=== PATIENT | male | born 1950 | race Caucasian/White ===

== ENCOUNTER 2019-05-21 06:34 | Day surgery (SDC) | payer OTHER, MEDICARE ==
[~2019-05-21] VITALS: Ht 182.9 cm; Wt 70.5 kg
[2019-05-21 06:57] LABS: HEMATOCRIT 42.6 % (42.0-54.0); HEMOGLOBIN 15.1 g/dL (13.5-17.5); MCH 30.6 pg (26.0-34.0); MCHC 35.4 g/dL (31.0-37.0); MCV 86.4 fL (80.0-100.0); MEAN PLATELET VOLUME 9.5 fL (7.4-10.4); PLATELET COUNT 183 10x3/uL (130-400); RBC 4.93 10x6/uL (4.20-6.10); RDW 12.4 % (11.5-14.5); WBC 4.5 10x3/uL (4.8-10.8)
[2019-05-21 07:06] LABS: ANION GAP 8.7 mmol/L (8-16); CALCIUM 8.8 mg/dL (8.5-10.1); CARBON DIOXIDE 29.6 mmol/L (21.0-32.0); CREATININE - SERUM 1.2 mg/dL (0.6-1.3); POTASSIUM - SERUM 4.3 mmol/L (3.5-5.1)
[2019-05-21] MEDS ORDERED: LISINOPRIL2.5 MG PO (07:13)
[2019-05-21 07:19] VITALS: BP 142/81; Ht 182.9 cm; Wt 70.5 kg
[2019-05-21 08:41] LABS: BASOPHILS 1 % (0-2); EOSINOPHILS 2 % (0-7); LYMPHOCYTES 29 % (15-50); MONOCYTES 2 % (2-11); NEUTROPHILS 61 % (40-80); PLATELET ESTIMATE DECREASED
--- NOTE | 2019-05-21 08:46 | OP ---
PATIENT NAME: ULISES SHIRLEY MEDICAL RECORD: [id number] :54 LOCATION:[facility] ADMISSION DATE: SURGEON: YENIFER CELESTE MD DATE OF OPERATION: 05/21/2019 PREOPERATIVE DIAGNOSIS: Gastric mass. POSTOPERATIVE DIAGNOSES: Gastric mass, large paraesophageal hernia, duodenitis. SURGEON: Yeinfer Celeste MD (JJ) PROCEDURE: Esophagogastroduodenoscopy with biopsy and Jennifer ink staining. SPECIMENS: 1. Duodenum. 2. Gastric mass. 3. Gastroesophageal junction. ANESTHESIA: Total intravenous anesthesia. Case was contaminated. OPERATIVE COURSE: After consent was obtained, the patient was taken to the endoscopy suite. A timeout was taken to confirm the correct patient and procedure. Hurricaine Covina was administered. Bite block was placed. Total intravenous anesthesia was administered. The patient was placed in left lateral decubitus position. Gastroscope was inserted through the bite block into the posterior oropharynx under direct endoscopic vision, it was advanced posterior to the epiglottis, into the esophagus. At this time, it was then passed into the stomach without difficulty. The stomach was insufflated. The gastric mass seen on CT scan was seen in the antrum covering the opening of the pylorus. The scope was advanced beyond the well rounded gastric mass. The pylorus was intubated. The first and second portion of the duodenums were evaluated. There was severe duodenitis noted in the first portion of the duodenum. Multiple biopsies were taken. The scope was retracted to the stomach. The gastric mass was evaluated. Multiple biopsies were taken at the well rounded circumcised mass in the distal antrum. The base of the lesion was stained with Jennifer ink. The scope was retroflexed. There was a large paraesophageal hernia noted. The scope was withdrawn to the GE junction. There was erosive esophagitis noted in the GE junction. Multiple biopsies were taken of the GE junction. The scope was reinserted into the stomach. The stomach was desufflated. The scope was then slowly withdrawn to the esophagus. There were no abnormalities of the esophagus other than the area of the GE junction. At this time, the scope was removed. The procedure was terminated. The patient tolerated the procedure well. Postoperatively, was transferred to the recovery room in stable condition. TRANSINT:[id number] Voice Confirmation ID: [id number] DOCUMENT ID: [id number] OPERATIVE REPORT [id number] ULISES SHIRLEY,YENIFER Montiel MD at 0846 CC: [id number] DICTATION DATE: 05/21/19822 BAIL BONDSMAN: 05/21/19 0842 REG [facility] [address] [id number]
--- NOTE | 2019-05-21 09:16 | NUR ---
DC INSTRUCTIONS GIVEN TO PT/FAMILY. STATE UNDERSTANDING. DC'D IV CATH FULLY INTACT. PT LEFT UNIT VIA WC AT 0911
== END 2019-05-21 09:11 | disposition home or self-care (01) ==
LOC: D.SP 06:34
PROVIDERS: Anesthesiology; ATTEND Surgery
DX: K29.50 Unspecified chronic gastritis without bleeding (principal); K44.9 Diaphragmatic hernia without obstruction or gangrene; K29.80 Duodenitis without bleeding; Z01.812 Encounter for preprocedural laboratory examination

== ENCOUNTER 2019-06-06 16:18 | Inpatient (IN) | payer OTHER, MEDICARE ==
[~2019-06-06] VITALS: Ht 182.9 cm; Wt 70.5 kg
[~2019-06-06 16:18] MED LIST: LISINOPRIL2.5 MG PO
[2019-06-12] MEDS ORDERED: CENTRUM MEN'S1 EACH PO (09:08)
[2019-06-12 09:48] LABS: BASOPHILS 0.8 % (0-2); EOSINOPHILS 1.8 % (0-7); HEMOGLOBIN 15.9 g/dL (13.5-17.5); IMMATURE GRANULOCYTES 0.3 % (0-5); LYMPHOCYTES 23.6 % (15-50); MCH 30.2 pg (26.0-34.0); MCHC 34.6 g/dL (31.0-37.0); MCV 87.3 fL (80.0-100.0); MEAN PLATELET VOLUME 9.8 fL (7.4-10.4); MONOCYTES 8.9 % (2-11); NEUTROPHILS 64.6 % (40-80); PLATELET COUNT 173 10x3/uL (130-400); RBC 5.27 10x6/uL (4.20-6.10); RDW 12.8 % (11.5-14.5); WBC 6.2 10x3/uL (4.8-10.8)
[2019-06-12 10:08] LABS: APTT 28.8 SECONDS (22.8-39.4); INR 0.99 (0.85-1.17); PROTIME 12.6 SECONDS (11.6-15.0)
[2019-06-13] VITALS (10 sets, daily range): BP systolic 119–142; BP diastolic 72–84; Ht 182.9 cm; Wt 70.5 kg
--- NOTE | 2019-06-13 11:02 | NUR ---
WHILE PLACING ESPINOSA CATHETER WE INCOUNTERED RESISTANCE AND HAD DIFFICULTY PASSING CATHETER PASSED THE PATIENTS PROSTATE. AFTER SEVERAL ATTEMPTS BY ME AND ANOTHOR NURSE WE CALLED DR. CELESTE AND HE WAS ABLE TO PLACE THE CATHETER BY USING A COUDE CATHETER WITH A CATHETER GUIDE. PATIENT HAS SOME BLEEDING AROUND THE CATHETER AND HAD BLOOD TENGED URINE FOLLOWING THESE ATTEMPTS.
--- NOTE | 2019-06-13 14:18 | NUR ---
RESTING IN BED. FAMILY AT BEDSIDE. DENIES PAIN. DENIES NEEDS. WILL CONTINUE TO MONITOR.
--- NOTE | 2019-06-13 15:17 | NUR ---
STATES PAIN 2/10. REQUESTED AND GIVEN PRN TORADOL. DOES NOT WANT ENERGY PROFESSIONAL SET UP AT THIS TIME. STATES DOES NOT FEEL LIKE AMBULATING AT THIS TIME BUT WILL "LATER." WILL CONTINUE TO MONITOR AND ATTEMPT TO AMBULATE AGAIN WHEN PAIN SUBSIDES.
--- NOTE | 2019-06-13 15:24 | NUR ---
SPOKE WITH DR CELESTE WHO STATES KEEP PATIENT NPO EXCEPT FOR ICE CHIPS AND SIPS OF WATER.
--- NOTE | 2019-06-13 15:59 | NUR ---
SPOKE WITH DR CELESTE IN ROOM WITH PATIENT AND FAMILY. STATES ESPINOSA CAN COME OUT TOMORROW MORNING AND TO FLUSH IF STOPS DRAINING. STATES IF SWALLOW STUDY OK, POSSIBLE DISCHARGE TOMORROW.
--- NOTE | 2019-06-13 16:00 | NUR ---
AMBULATED 250 FEET PER NURSING.
--- NOTE | 2019-06-13 16:05 | NUR ---
SMALL AMOUNT OF BLOOD NOTED TO TIP OF PENIS AROUND CATHETER. DR CELESTE AWARE.
--- NOTE | 2019-06-13 16:27 | NUR ---
VITALS REMAIN STABLE. TAKEN OFF O2. O2 95% ON ROOM AIR. WILL CONTINUE TO MONITOR. STATES PAIN AT 0 AFTER PRN TORADOL AND DOES NOT WANT DIGITAL ASSET COORDINATOR AT THIS TIME WILL CONTINUE TO MONITOR.
--- NOTE | 2019-06-13 17:15 | NUR ---
RESTING IN BED. VITALS REMAIN STABLE. DENIES PAIN. DENIES NEEDS. WILL CONTINUE TO MONITOR.
--- NOTE | 2019-06-13 20:00 | NUR ---
ASSESSMENT PER FLOWSHEET. LAP SITES X6 TO ABDOMEN INTACT WITH RT LAP SITE OOZING TINY AMT OF BLOOD. PT IS NPO X ICE CHIPS. SMALL AMOUNT BLOOD COMING FROM PENIS ESPINOSA INSERTION SITE. URINE IN TUBING IS CLEARING UP DARK LATA NOTED. IV PATENT RT ARM OF LR AT 75CC'S/HR. SITE CLEAR. DENIES PAIN. PATIENT REQUESTING TO WALK AT BEDSIDE. GOWN CHANGED TO A CLIMATOLOGIST GOWN IV PLACED ON DELAY. AND PATIENT AMBULATED IN HALLWAY X ONE LAP TOLERATED WELL.
--- NOTE | 2019-06-13 21:00 | NUR ---
PATIENT IN ROOM NOW IN BED. SR UP X2 CALL LIGHT WITHIN REACH. RESTING QUIETLY.
--- NOTE | 2019-06-13 23:58 | NUR ---
C/O INCISIONAL PAIN RATES PAIN LEVEL #5. TORADOL 30MG IVP GIVEN FOR PAIN CONTROL.
[2019-06-14 01:06] VITALS: BP 123/59
--- NOTE | 2019-06-14 01:47 | NUR ---
EYES CLOSED RESPIRATIONS WITH EASE AND UNLABORED. AT BEDSIDE. PT HAS BEEN TAKING ICE CHIPS WITHOUT AND PROBLEMS.
[2019-06-14 05:37] VITALS: BP 112/59
--- NOTE | 2019-06-14 06:27 | NUR ---
MEDS GIVEN PER MAR. RESTING QUIETLY DENIES NEEDS.
[2019-06-14 06:42] LABS: BASOPHILS 0.1 % (0-2); EOSINOPHILS 0 % (0-7); HEMOGLOBIN 12.9 g/dL (13.5-17.5); IMMATURE GRANULOCYTES 0.2 % (0-5); LYMPHOCYTES 4.8 % (15-50); MCH 30.1 pg (26.0-34.0); MCHC 34.9 g/dL (31.0-37.0); MCV 86.2 fL (80.0-100.0); MEAN PLATELET VOLUME 9.9 fL (7.4-10.4); MONOCYTES 6.6 % (2-11); NEUTROPHILS 88.3 % (40-80); RBC 4.29 10x6/uL (4.20-6.10); RDW 13.1 % (11.5-14.5)
[2019-06-14 06:50] LABS: PLATELET COUNT 137 10x3/uL (130-400); WBC 13.9 10x3/uL (4.8-10.8)
[2019-06-14 06:56] LABS: ALBUMIN 2.9 g/dL (3.4-5.0); ANION GAP 11.2 mmol/L (8-16); BILIRUBIN - TOTAL 1.02 mg/dL (0.2-1.3); CARBON DIOXIDE 27.3 mmol/L (21.0-32.0); CREATININE - SERUM 1.2 mg/dL (0.6-1.3); POTASSIUM - SERUM 4.5 mmol/L (3.5-5.1); PROTEIN - SERUM 5.7 g/dL (6.4-8.2)
--- NOTE | 2019-06-14 07:15 | NUR ---
REPORT RECIEVED PATIENT IN BED WITH IV INTACT. NO COMPLAINTS OR SIGNS OF DISTRESS. ESPINOSA INTACT. FAMILY AT BEDSIDE. CALL LIGHT WITHIN REACH.
--- NOTE | 2019-06-14 07:34 | NUR ---
PATIENT CATHETER REMOVED AT THIS TIME PER ORDER. PATIENT VOIDED SMALL AMOUNT AFTER REMOVING. LIGHT PINK URINE. STATED HAS SMALL AMOUNT OF PAIN FROM CATHETER. WILL CONTINUE TO MONITOR.
[2019-06-14 08:50] VITALS: BP 116/53
--- NOTE | 2019-06-14 09:54 | NUR ---
PATIENT TO GET SWALLOW STUDY.
--- NOTE | 2019-06-14 11:00 | NUR ---
PATIENT AMBULATING IN [place] WITH FOR 2ND TIME. NO PROBLEMS AT THIS TIME. ABLE TO AMBULATE WITHOUT ASSISTANCE.
[2019-06-14 12:14] VITALS: BP 120/61
[2019-06-14] MEDS ORDERED: HYDROCODON-ACE1 EAC7 PO (13:35)
--- NOTE | 2019-06-14 15:00 | NUR ---
PATIENT RECIEVED DC INSTRUCTIONS. VERBALIZED UNDERSTANDING. NO QUESTIONS AT THIS TIME. IV REMOVED WITH CATH TIP INTACT. NOTIFIED PATIENT MEDS CALLED INTO [facility].
--- NOTE | 2019-06-14 15:15 | NUR ---
PATIENT AMBULATED OUT OF HOSPITAL WITH FAMILY AND PERSONAL BELONGINGS TO PRIVATE VEHICLE. REFUSED WC AT THIS TIME.
--- NOTE | 2019-06-18 12:28 | MORECARE ---
CASE MANAGEMENT DISCHARGE SUMMARY PATIENT: ULISES SHIRLEY UNIT: [id number] ADM DATE: 06/13/19 AGE: 69 : 52 SEX: M ROOM/BED: D.2224 AUTHOR: GEORGIA SAUCEDA PHYSICIAN: REFERRING PHYSICIAN: YENIFER CELESTE MD DATE OF SERVICE: 06/18/19 Discharge Plan Patient Name: ULISES SHIRLEY Facility: [facility]:[place] : 1950 Planned Disposition: Anticipated Discharge Date: Discharge Date: 06/14/2019 Expected LOS: 0 Initial Reviewer: [email or web address] Initial Review Date: 06/18/2019 Generated: 06/18/19 1:27 pm DCP- Discharge Planning Updated by [email or web address]: Sanaz Chapa on 06/13/19 2:[address] Linda with [employer] called and states that she is the leather case finisher for him and to call for any discharge planning/needs. Her phone number is [phone] ext [phone]. Patient Name: ULISES SHIRLEY Page [id number] at 1228 All edits/amendments must be made on the electronic document DICTATION DATE: 06/18/191226 BONBON CREAM WARMER: АННА 06/18/197 RPT#: [id number] DC DATE:06/14/19 STATUS: DIS IN [facility] [address] [place] [address] END OF REPORT
--- NOTE | 2019-07-11 09:56 | OP ---
PATIENT NAME: ULISES SHIRLEY MEDICAL RECORD: [id number] :54 LOCATION:[id number] ADMISSION DATE:06/13/19 SURGEON: SARAH CURTIS MD DATE OF OPERATION: 06/13/2019 DIE SIZER'S NOTE I assisted Dr. Scooby Godoy with an operation on 06/13/2019. My involvement in the operation included performing intraoperative esophagogastroduodenoscopy with CO2. A bite block was inserted. A gastroscope was inserted into the mouth. It was advanced easily into the hypopharynx. The esophagus was easily intubated as were the stomach and duodenum. Upon withdrawal, I identified the mass. I was able to transilluminate the stomach. The Jennifer ink stain was noted around the mass. The scope light was then turned off. I then scrubbed in. I assisted with laparoscopic resection of the tumor. I did some dissection with the Harmonic scalpel. I did some retraction of the stomach as well as suctioning and irrigating. My involvement in this portion of the operation was really quite minimal. I then scrubbed out. I proceeded with the EGD. I insufflated the stomach with CO2. This was done while there was saline covering the stomach. The suture line was tested. There was no evidence of leak. The endoscope was then withdrawn under direct vision. TRANSINT:[id number] Voice Confirmation ID: [id number] DOCUMENT ID: [id number] SARAH CURTIS MD at 0956 CC: [id number] DICTATION DATE: 07/10/19 182 SPANISH SPEAKING NANNY: 07/11/19 0202 DIS IN 06/14/19 [id number] [place] [id number]
== END 2019-06-14 16:15 | disposition home or self-care (01) | DRG 983 ==
LOC: D.MS 06-13 07:00 → D.SDCHOLD 06-13 08:00 → D.MS 06-14 16:15
PROVIDERS: Anesthesiology; ADMIT Surgery; ATTEND Surgery
PROC: 0BQT4ZZ Repair Diaphragm, Percutaneous Endoscopic Approach (ICD-10-PCS; principal; 2019-06-13 09:00)
PROC: 0DB64ZZ Excision of Stomach, Percutaneous Endoscopic Approach (ICD-10-PCS; 2019-06-13 09:00)
DX: C49.A2 Gastrointestinal stromal tumor of stomach (principal); K44.9 Diaphragmatic hernia without obstruction or gangrene

== ENCOUNTER 2020-07-08 05:35 | Day surgery (SDC) | payer OTHER, MEDICARE ==
[~2020-07-08] VITALS: Ht 182.9 cm; Wt 70.5 kg
--- NOTE | ~2020-07-08 | OP ---
PATIENT NAME: ULISES SHIRLEY MEDICAL RECORD: [id number] :54 LOCATION:[facility] ADMISSION DATE: SURGEON: QUINCY IBARRA MD DATE OF OPERATION: 07/08/2020 PREOPERATIVE DIAGNOSES: 1. Gastroesophageal reflux disease. 2. Hiatal hernia. 3. 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 POSTOPERATIVE DIAGNOSES: 1. Gastroesophageal reflux disease. 2. Hiatal hernia. 3. 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 PROCEDURE: EGD with biopsy. SURGEON: Quincy Ibarra MD REPORT OF PROCEDURE: An Olympus endoscope was advanced through the mouth and esophagus. We were able to pass through the stomach and into the pylorus. Once we passed the pylorus, we were able to get to the third portion of the duodenum. There were no masses, lesions or ulcerations noted throughout the duodenal tissue. As we pulled back, the antrum of the stomach appeared normal with no evidence of gastritis or ulcerations. A random biopsy was taken of the tissues. I did a retroflex view of the stomach and could see no evidence of any new masses or lesions. There was no evidence of any recurrence of the GIST tumor. The retroflexed view showed that the patient did have a hiatal hernia that was recurrent. This appeared to be about 3-4 cm in length. The diaphragmatic hiatus appeared to be fairly tight around the herniated portion of the stomach. As I pulled the scope back, I did not see any evidence of ulcerations in the herniated portion of the stomach. The GE junction rested at about 38 cm from the teeth. There were some ulcerations visible in the distal esophagus consistent with esophagitis. Random biopsy was taken from the tissue near the GE junction. At this point, the insufflation was removed and the scope was pulled out without complication. COMPLICATIONS: None. CONDITION: Stable. ANESTHESIA: TIVA. BLOOD LOSS: Minimal. TRANSINT:[id number] Voice Confirmation ID: [id number] DOCUMENT ID: [id number] OPERATIVE REPORT [id number] ULISES SHIRLEY CHRISTIAN MD CC: [id number] DICTATION DATE: 07/08/20914 INFORMATION RESOURCES DIRECTOR: 07/08/20 1230 [facility] 07/08/20 [id number] [place] [address]
[~2020-07-08 05:35] MED LIST changes: +CENTRUM MEN'S1 EACH PO; +HYDROCODON-ACE1 EAC7 PO
[2020-07-08 05:56] LABS: HEMATOCRIT 44.8 % (42.0-54.0); HEMOGLOBIN 14.8 g/dL (13.5-17.5); MCH 29.7 pg (26.0-34.0); MEAN PLATELET VOLUME 9.5 fL (7.4-10.4); RBC 4.98 10x6/uL (4.20-6.10); RDW 12.7 % (11.5-14.5); WBC 4.3 10x3/uL (4.8-10.8)
[2020-07-08] MEDS ORDERED: OMEPRAZOLE40 MG PO (06:50)
[2020-07-08 07:02] VITALS: BP 140/73; Ht 182.9 cm; Wt 70.5 kg
== END 2020-07-08 09:18 | disposition home or self-care (01) ==
LOC: D.OPS 05:35
PROVIDERS: Anesthesiology; ATTEND Surgery
DX: K21.9 Gastro-esophageal reflux disease without esophagitis (principal); K44.9 Diaphragmatic hernia without obstruction or gangrene; C49.A0 Gastrointestinal stromal tumor, unspecified site